=== PATIENT | female | born 2000 | race Caucasian/White ===

== ENCOUNTER 2021-04-07 21:01 | Inpatient (IN) ==
[2021-04-07] MEDS ORDERED: LACTATED RINGERS 500 ML IV PRN (21:15)
[2021-04-07] MEDS ORDERED: ONDANSETRON 4 MG/2 ML VIAL IV PRN (21:15)
[2021-04-07 21:38] LABS: Basophils % 0.2 % (0.0-0.8); Eosinophils # 0.1 10*3/uL (0.0-0.87); Eosinophils % 0.7 % (0.00-10.9); Hematocrit 28.4 VOL% (35.7-47.0); Hemoglobin 8.7 GM/DL (12.0-16.0); Immature Granulocytes % 0.5 %; Immature Granulocytes Absolute 0.05 #; Lymphocytes # 2.3 10*3/uL (1.4-4.0); Lymphocytes % 22.9 % (21.3-54.2); Mean Corpuscular HGB Conc 30.6 GM/DL (32-36); Mean Corpuscular Volume 79.1 FL (87-102); Mean Platelet Volume 10.6 FL (9.6-12.0); Monocytes % 9.2 % (1.7-12.7); Neutrophils % 66.5 % (38.7-73.9); Platelet Count 269 T/CUMM (130-400); Red Blood Count 3.59 MC/CUMM (3.8-5.5); Red Cell Distribution Width 14.6 % (9.3-17.3)
[2021-04-07 21:59] LABS: Albumin 2.7 G/DL (3.4-5.0); Bilirubin,Total 0.5 MG/DL (0.20-1.00); Calcium 8.3 MG/DL (8.5-10.1); Potassium 3.7 MMOL/L (3.5-5.1); Total Protein 6.8 G/DL (6.4-8.2)
[2021-04-08] MEDS ORDERED: MEPERIDINE 50 MG/1 ML VIAL IV PRN (20:17)
[2021-04-08] MEDS: BUTORPHANOL 2 MG/ML VIAL IV PRN (23:00)
[2021-04-09] MEDS: BUTORPHANOL 2 MG/ML VIAL IV PRN (02:50)
[2021-04-09] MEDS ORDERED: NALOXONE 0.4 MG/ML VIAL IV PRN (04:08)
[2021-04-09] MEDS ORDERED: diphenhydrAMINE 50 MG/1 ML VIAL IV PRN ×2 (04:08)
[2021-04-09] MEDS ORDERED: ePHEDrine 50 MG/ML VIAL IV PRN (04:08)
[2021-04-09] MEDS ORDERED: hydrOXYzine HCL 25 MG/1 ML VIAL IM PRN (04:08)
[2021-04-09] MEDS ORDERED: LACTATED RINGERS 250 ML IV PRN (04:08)
[2021-04-09] MEDS ORDERED: PROMETHAZINE 25 MG/1 ML VIAL IM ONE (04:08)
[2021-04-09] MEDS ORDERED: FAMOTIDINE 20 MG/2 ML VIAL IV ONE (04:10)
[2021-04-09] MEDS ORDERED: CITRIC ACID/SODIUM CITRATE 30 ML UDCUP PO ONE (04:11)
[2021-04-09] MEDS: LACTATED RINGERS 1,000 ML IV SCH ×2 (04:20→05:29)
[2021-04-09] MEDS ORDERED: fentaNYL 2 MCG/ROPIV 0.2% EPID 100 ML EPIDURAL SCH (04:30)
[2021-04-09] MEDS ORDERED: OXYTOCIN/LR 20 UNIT/1,000 ML BAG IV SCH (05:00)
[2021-04-09] MEDS ORDERED: TRANEXAMIC ACID 1,000 MG/10 ML VIAL ONE ×2 (09:20→11:45)
[2021-04-09] MEDS ORDERED: miSOPROStoL 200 MCG TABLET ONE ×2 (09:20→11:44)
[2021-04-09] MEDS ORDERED: OXYTOCIN/LR 20 UNIT/1,000 ML BAG IV ONE ×3 (09:20→13:11)
[2021-04-09] MEDS ORDERED: CARBOPROST TROMETHAMINE 250 MCG/ML AMP IM ONE ×2 (09:21→11:45)
[2021-04-09 11:06] LABS: Bacteria,Urine Occasional /HPF (Few); Bilirubin,Urine Negative (Negative); Blood, Urine Negative (Negative); Glucose,Urine (UA) Negative (Negative); Ketones,Urine 80 mg/dL (Negative); Mucus,Urine Many /LPF (Occasional); Nitrite,Urine Negative (Negative); Protein,Urine 30 MG/DL; RBC,Urine 5 /HPF (0-4); Squamous Epithelial Cell,Urine Occasional /HPF (0-10); Urine Appearance CLEAR (Clear); Urine Color Amber (Yellow); Urine Specific Gravity 1.024 (1.001-1.035)
[2021-04-09] MEDS ORDERED: METHYLERGONOVINE 0.2 MG/1 ML AMP ONE (11:45)
[2021-04-09] MEDS ORDERED: TERBUTALINE 1 MG/1 ML VIAL SUBCUT ONE (11:45)
[2021-04-09] MEDS ORDERED: fentaNYL 100 MCG/2 ML VIAL ONE (12:31)
[2021-04-09] MEDS ORDERED: LIDOCAINE MPF 2% /EPI 20 ML VIAL ONE (12:31)
[2021-04-09] MEDS ORDERED: ONDANSETRON 4 MG/2 ML VIAL ONE (12:31)
[2021-04-09] MEDS ORDERED: OXYTOCIN 10 UNIT/ML VIAL ONE (12:33)
[2021-04-09] MEDS ORDERED: METHYLERGONOVINE 0.2 MG/1 ML AMP IM ONE (12:34)
[2021-04-09] MEDS ORDERED: LACTATED RINGERS 1,000 ML IV ONE (12:35)
[2021-04-09] MEDS ORDERED: LIDOCAINE 2% 5 ML VIAL ONE (12:39)
[2021-04-09] MEDS ORDERED: ACETAMINOPHEN INJ 1,000 MG/100 ML VIAL IV ONE (12:44)
[2021-04-09] MEDS ORDERED: KETOROLAC 30 MG/1 ML VIAL ONE (12:44)
[2021-04-09] MEDS ORDERED: LANOLIN 50% CREAM 0.3 OZ TUBE TOP PRN (13:11)
[2021-04-09] MEDS ORDERED: BISACODYL 10 MG SUPP RECTAL PRN (13:11)
[2021-04-09] MEDS ORDERED: MEASLES/MUMPS/RUBELLA VACCINE 0.5 ML VIAL SUBCUT ONE (13:11)
[2021-04-09] MEDS ORDERED: WITCH HAZEL PADS 100/JAR TOP PRN (13:11)
[2021-04-09] MEDS ORDERED: BENZOCAINE 20%/MENTHOL 0.5% SPRAY 56 GM CAN TOP PRN (13:11)
[2021-04-09] MEDS ORDERED: RHO(D) IMMUNE GLOBULIN 300 MCG SYRINGE IM ONE (13:11)
[2021-04-09] MEDS ORDERED: HYDROCORTISONE 2.5% RECTAL CREAM 30 GM TUBE TOP PRN (13:11)
[2021-04-09] MEDS ORDERED: oxyCODONE/ACETAMINOPHEN 5-325 MG TABLET PO PRN (13:11)
[2021-04-09] MEDS ORDERED: DIPH/TET/ACEL PERT BOOSTER VACCINE 0.5 ML VIAL IM ONE (13:11)
[2021-04-09] MEDS ORDERED: ONDANSETRON 4 MG/2 ML VIAL IV PRN (13:11)
[2021-04-09] MEDS ORDERED: ACETAMINOPHEN 325 MG TABLET PO PRN (13:11)
[2021-04-09] MEDS ORDERED: SODIUM BICARBONATE 10 MEQ/10 ML SYRINGE IV ONE (13:29)
[2021-04-09] MEDS: oxyCODONE/ACETAMINOPHEN 5-325 MG TABLET PO PRN (15:58)
[2021-04-09] MEDS: KETOROLAC 30 MG/1 ML VIAL IV SCH (18:31)
[2021-04-10] MEDS: ACETAMINOPHEN 500 MG TABLET PO SCH ×2 (00:19→05:45)
[2021-04-10] MEDS: KETOROLAC 30 MG/1 ML VIAL IV SCH ×2 (04:20→10:30)
[2021-04-10] MEDS: DOCUSATE SODIUM 100 MG CAPSULE PO SCH ×3 (05:46→20:35)
[2021-04-10 05:56] LABS: Basophils % 0.2 % (0.0-0.8); Eosinophils % 0.3 % (0.00-10.9); Hematocrit 25.9 VOL% (35.7-47.0); Hemoglobin 7.7 GM/DL (12.0-16.0); Immature Granulocytes % 0.5 %; Immature Granulocytes Absolute 0.05 #; Lymphocytes # 1.8 10*3/uL (1.4-4.0); Lymphocytes % 17.5 % (21.3-54.2); Mean Corpuscular HGB Conc 29.7 GM/DL (32-36); Mean Corpuscular Volume 79.9 FL (87-102); Mean Platelet Volume 11.4 FL (9.6-12.0); Monocytes % 9.1 % (1.7-12.7); Neutrophils % 72.4 % (38.7-73.9); Platelet Count 198 T/CUMM (130-400); Red Blood Count 3.24 MC/CUMM (3.8-5.5); Red Cell Distribution Width 14.8 % (9.3-17.3)
[2021-04-10] MEDS: FERROUS SULFATE 325 MG TABLET PO SCH ×3 (10:11→20:35)
[2021-04-10] MEDS ORDERED: KETOROLAC 30 MG/1 ML VIAL IV ONE (10:16)
[2021-04-10] MEDS: MULTIVITAMIN (PRENATAL) TABLET PO SCH (10:23)
[2021-04-10] MEDS: oxyCODONE/ACETAMINOPHEN 5-325 MG TABLET PO PRN (12:27)
[2021-04-10] MEDS: IBUPROFEN 800 MG TABLET PO PRN (20:35)
[2021-04-10] MEDS: MAGNESIUM HYDROXIDE SUSP 30 ML UDCUP PO PRN (23:35)
[2021-04-11] MEDS: IBUPROFEN 800 MG TABLET PO PRN (07:42)
[2021-04-11] MEDS: oxyCODONE/ACETAMINOPHEN 5-325 MG TABLET PO PRN (07:42)
[2021-04-11] MEDS: MAGNESIUM HYDROXIDE SUSP 30 ML UDCUP PO PRN (07:43)
[2021-04-11 08:01] VITALS: BP 126/70
[2021-04-11] MEDS: DOCUSATE SODIUM 100 MG CAPSULE PO SCH (08:54)
[2021-04-11] MEDS: MULTIVITAMIN (PRENATAL) TABLET PO SCH (08:54)
[2021-04-11] MEDS: FERROUS SULFATE 325 MG TABLET PO SCH (08:54)
== END 2021-04-11 13:05 | disposition home or self-care (01) | DRG 788 ==
LOC: N.LDOUT 21:01 → N.LD 21:05 → N.OB 04-09 16:40
PROVIDERS: ADMIT Specialist; ATTEND Specialist
PROC: LDCSECT (ICD-10-PCS; 2021-04-09 11:45)

== ENCOUNTER 2022-10-10 05:45 | Inpatient (IN) ==
[2022-10-10] MEDS ORDERED: FAMOTIDINE 20 MG/2 ML VIAL IV ONE (05:55)
[2022-10-10] MEDS ORDERED: TRANEXAMIC ACID 1,000 MG in SODIUM CHLORIDE 0.9% 100 ML IV PRN (05:55)
[2022-10-10] MEDS ORDERED: miSOPROStoL 200 MCG TABLET RECTAL PRN (05:55)
[2022-10-10] MEDS ORDERED: CARBOPROST TROMETHAMINE 250 MCG/ML AMP IM PRN (05:55)
[2022-10-10] MEDS ORDERED: METHYLERGONOVINE 0.2 MG/1 ML AMP IM PRN (05:55)
[2022-10-10] MEDS ORDERED: ceFAZolin 2,000 MG/50 ML DUPLEX IV ONE (05:55)
[2022-10-10] MEDS ORDERED: CITRIC ACID/SODIUM CITRATE 30 ML UDCUP PO ONE (05:55)
[2022-10-10] MEDS ORDERED: diphenhydrAMINE 50 MG/1 ML VIAL IV PRN ×2 (05:57)
[2022-10-10] MEDS ORDERED: ONDANSETRON 4 MG/2 ML VIAL IV PRN ×2 (05:57→11:58)
[2022-10-10] MEDS ORDERED: hydrOXYzine HCL 25 MG/1 ML VIAL IM PRN (05:57)
[2022-10-10] MEDS ORDERED: PROMETHAZINE 25 MG/1 ML VIAL IM PRN (05:57)
[2022-10-10] MEDS: LACTATED RINGERS 1,000 ML IV SCH ×2 (06:15→20:00)
[2022-10-10 06:54] LABS: Basophils % 0.2 % (0.0-0.8); Eosinophils # 0.2 10*3/uL (0.0-0.87); Eosinophils % 1.6 % (0.00-10.9); Hemoglobin 9.2 GM/DL (12.0-16.0); Immature Granulocytes % 0.5 %; Immature Granulocytes Absolute 0.05 #; Lymphocytes # 2.6 10*3/uL (1.4-4.0); Lymphocytes % 26.7 % (21.3-54.2); Mean Corpuscular HGB Conc 30.7 GM/DL (32-36); Mean Corpuscular Volume 77.3 FL (87-102); Mean Platelet Volume 10.9 FL (9.6-12.0); Monocytes # 0.8 10*3/uL (0.11-0.8); Monocytes % 8.3 % (1.7-12.7); Neutrophils % 62.7 % (38.7-73.9); Platelet Count 323 T/CUMM (130-400); Red Blood Count 3.88 MC/CUMM (3.8-5.5); Red Cell Distribution Width 15.3 % (9.3-17.3); White Blood Count 9.84 T/CUMM (4-12)
[2022-10-10] MEDS ORDERED: DEXAMETHASONE 4 MG/1 ML VIAL ONE (07:04)
[2022-10-10] MEDS ORDERED: ONDANSETRON 4 MG/2 ML VIAL ONE (07:04)
[2022-10-10] MEDS ORDERED: KETOROLAC 30 MG/1 ML VIAL ONE (07:04)
[2022-10-10] MEDS ORDERED: ACETAMINOPHEN INJ 1,000 MG/100 ML VIAL IV ONE (07:04)
[2022-10-10] MEDS ORDERED: buprenorphine HCL 0.3 MG/ML VIAL ONE (07:05)
[2022-10-10 07:18] LABS: Albumin 2.8 G/DL (3.4-5.0); Bilirubin,Total 0.4 MG/DL (0.20-1.00); Calcium 8.5 MG/DL (8.5-10.1); Osmolality,Calculated 270.7 MOS/KG (273-304); Potassium 3.7 MMOL/L (3.5-5.1)
[2022-10-10] MEDS ORDERED: TRANEXAMIC ACID 1,000 MG/10 ML VIAL ONE (07:27)
[2022-10-10] MEDS ORDERED: SODIUM CHLORIDE 0.9% 0 ML IV ONE (07:27)
[2022-10-10] MEDS ORDERED: miSOPROStoL 200 MCG TABLET ONE (07:27)
[2022-10-10] MEDS ORDERED: OXYTOCIN/LR 20 UNIT/1,000 ML BAG IV ONE ×2 (07:27→11:58)
[2022-10-10] MEDS ORDERED: METHYLERGONOVINE 0.2 MG/1 ML AMP ONE (07:27)
[2022-10-10] MEDS ORDERED: CARBOPROST TROMETHAMINE 250 MCG/ML AMP IM ONE (07:28)
[2022-10-10] MEDS ORDERED: ePHEDrine 50 MG/ML VIAL ONE (07:57)
[2022-10-10] MEDS ORDERED: PHENYLEPHRINE 1 MG/10 ML SYRINGE IV ONE ×2 (07:57→08:15)
[2022-10-10 08:26] LABS: Cord Arterial Blood HCO3 19.8 MMOL/L
[2022-10-10 08:28] LABS: Bacteria,Urine Occasional /HPF (Few)
[2022-10-10 08:29] LABS: Bilirubin,Urine Negative (Negative); Blood, Urine Trace mg/dL (Negative); Glucose,Urine (UA) Negative (Negative); Ketones,Urine Negative (Negative); Nitrite,Urine Negative (Negative); Protein,Urine Negative (Negative); Urine Appearance Clear (Clear); Urine Color Straw (Yellow); Urine Specific Gravity 1.015 (1.001-1.035); Urine Urobilinogen 0.2 eU/dL (<2.0); Urine pH 7.5 (4.5-8.0)
[2022-10-10 08:29] LABS: Cord Venous Blood HCO3 22.1 MMOL/L; Cord Venous Blood PCO2 50.5 MMHG; Cord Venous Blood PO2 27.7
[2022-10-10] MEDS: OXYTOCIN/LR 20 UNIT/1,000 ML BAG IV PRN ×2 (10:03→11:30)
[2022-10-10] MEDS ORDERED: HYDROCORTISONE 2.5% RECTAL CREAM 30 GM TUBE TOP PRN (11:58)
[2022-10-10] MEDS ORDERED: BISACODYL 10 MG SUPP RECTAL PRN (11:58)
[2022-10-10] MEDS ORDERED: DIPH/TET/ACEL PERT BOOSTER VACCINE 0.5 ML VIAL IM ONE (11:58)
[2022-10-10] MEDS ORDERED: MEASLES/MUMPS/RUBELLA VACCINE 0.5 ML VIAL SUBCUT ONE (11:58)
[2022-10-10] MEDS ORDERED: oxyCODONE/ACETAMINOPHEN 5-325 MG TABLET PO PRN (11:58)
[2022-10-10] MEDS ORDERED: RHO(D) IMMUNE GLOBULIN 300 MCG SYRINGE IM ONE (11:58)
[2022-10-10] MEDS ORDERED: LANOLIN 50% CREAM 0.3 OZ TUBE TOP PRN (11:58)
[2022-10-10] MEDS ORDERED: ACETAMINOPHEN 325 MG TABLET PO PRN (11:58)
[2022-10-10] MEDS ORDERED: WITCH HAZEL PADS 100/JAR TOP PRN (11:58)
[2022-10-10] MEDS ORDERED: BENZOCAINE 20%/MENTHOL 0.5% SPRAY 56 GM CAN TOP PRN (11:58)
[2022-10-10] MEDS: ACETAMINOPHEN 500 MG TABLET PO PRN ×2 (14:47→21:00)
[2022-10-10] MEDS: KETOROLAC 30 MG/1 ML VIAL IV PRN (21:00)
[2022-10-10] MEDS: DOCUSATE SODIUM 100 MG CAPSULE PO SCH (21:16)
[2022-10-11] MEDS: ACETAMINOPHEN 500 MG TABLET PO PRN (04:00)
[2022-10-11] MEDS: KETOROLAC 30 MG/1 ML VIAL IV PRN (04:00)
[2022-10-11 06:06] LABS: Basophils % 0.3 % (0.0-0.8); Eosinophils # 0.1 10*3/uL (0.0-0.87); Eosinophils % 0.7 % (0.00-10.9); Hematocrit 24.8 VOL% (35.7-47.0); Hemoglobin 7.3 GM/DL (12.0-16.0); Immature Granulocytes % 0.5 %; Immature Granulocytes Absolute 0.06 #; Lymphocytes % 26.8 % (21.3-54.2); Mean Corpuscular HGB Conc 29.4 GM/DL (32-36); Mean Corpuscular Volume 79.2 FL (87-102); Mean Platelet Volume 10.8 FL (9.6-12.0); Monocytes # 1.1 10*3/uL (0.11-0.8); Monocytes % 9.6 % (1.7-12.7); Neutrophils % 62.1 % (38.7-73.9); Platelet Count 274 T/CUMM (130-400); Red Blood Count 3.13 MC/CUMM (3.8-5.5); Red Cell Distribution Width 15.1 % (9.3-17.3); White Blood Count 11.34 T/CUMM (4-12)
[2022-10-11] MEDS: DOCUSATE SODIUM 100 MG CAPSULE PO SCH ×2 (08:57→21:26)
[2022-10-11] MEDS: IRON (CARBONYL)/VIT C/B12/FA TABLET PO SCH (08:57)
[2022-10-11] MEDS ORDERED: FERROUS SULFATE 325 MG TABLET PO SCH (09:00)
[2022-10-11] MEDS: oxyCODONE/ACETAMINOPHEN 5-325 MG TABLET PO PRN ×2 (16:53→22:23)
[2022-10-11] MEDS: IBUPROFEN 800 MG TABLET PO PRN (21:40)
[2022-10-12] MEDS: IBUPROFEN 800 MG TABLET PO PRN (06:13)
[2022-10-12] MEDS: oxyCODONE/ACETAMINOPHEN 5-325 MG TABLET PO PRN (06:14)
[2022-10-12 07:17] VITALS: BP 120/67
[2022-10-12] MEDS: DOCUSATE SODIUM 100 MG CAPSULE PO SCH (09:43)
[2022-10-12] MEDS: IRON (CARBONYL)/VIT C/B12/FA TABLET PO SCH (09:43)
== END 2022-10-12 11:45 | disposition home or self-care (01) | DRG 788 ==
LOC: N.LD 05:45 → N.OB 11:25
PROVIDERS: ADMIT Specialist; ATTEND Specialist
PROC: LDCSECT (ICD-10-PCS; 2022-10-10 08:30)